=== PATIENT | male | born 1980 | race Caucasian/White ===

== ENCOUNTER 2016-06-16 20:36 | Emergency (ER) ==
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
[2016-06-16] MEDS ORDERED: TYLENOL PO ONE (21:06)
[2016-06-16] MEDS ORDERED: DOXYCYCLINE PO ONE (22:15)
[2016-06-16 22:33] VITALS: BP 130/83
--- NOTE | 2016-06-17 11:32 | Diag Imaging Result Document ---
PROCEDURE NAME: HEAD W/O CONTRAST - 06/16/2016 CT OF THE HEAD WITHOUT CONTRAST: FINDINGS: There is no evidence of mass effect, bleed, or abnormal extra-axial fluid collection. The visualized paranasal sinuses are clear and the calvarium is intact. IMPRESSION: No evidence of acute disease.
--- NOTE | 2016-06-17 11:35 | Diag Imaging Result Document ---
PROCEDURE NAME: FACIAL BONES W/O CONTRAST - 06/16/2016 CT OF THE FACIAL BONES: FINDINGS: There are mucous retention cysts and chronic mucosal thickening in the inferior maxillary sinuses. There is deviation of the nasal septum to the left. There is evidence of previous periodontal disease particularly in the maxilla. The mandible appears to be intact. There are no air fluid levels. IMPRESSION: No evidence of acute bony disease. Mild chronic sinus changes.
== END 2016-06-16 22:32 | disposition home or self-care (01) ==
LOC: ED 20:36
DX: H57.10 Ocular pain, unspecified eye (principal); J32.0 Chronic maxillary sinusitis; R51 Headache; Y08.89XA Assault by other specified means, initial encounter; Z79.899 Other long term (current) drug therapy
CPT/HCPCS: 70450; 70486